=== PATIENT | male | born 1980 | race Caucasian/White ===

== ENCOUNTER 2022-02-10 02:51 | Outpatient (CLI) | payer MEDICAID | END 2022-02-10 02:52 | disposition critical access hospital (66) | LOC: EMS 02:51 | DX: R11.2 Nausea with vomiting, unspecified (principal) | CPT/HCPCS: A0425; A0427; A0999 ==

== ENCOUNTER 2022-02-10 03:09 | Emergency (ER) | payer MEDICAID, MEDICARE ==
[2022-02-10 03:27] VITALS: BP 127/77
--- NOTE | 2022-02-10 04:55 | ED Physician Documentation ---
History of Present Illness - Stated complaint Stated Complaint: VOMITING - Chief complaint Chief Complaint: General - History obtained from History obtained from: Patient - History of Present Illness Timing: Prior to arrival Pain level now: 0 Improved by: no ameliorating factors Worsened by: no exacerbating factors - Additonal information Additional information: BIBA from [facility]. 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 Symptoms have been adequately controlled with PO meds until [facility] when he suddenly had recurrent vomiting with nausea, unable to tolerate anything PO including the medications for nausea as well as withdrawal ([facility] can only give PO meds and not IV or IM). Review of Systems Constitutional: reports: Reviewed and negative Cardiac: reports: Reviewed and negative Respiratory: reports: Reviewed and negative GI: reports: Nausea, Vomiting. denies: Abdominal Pain PD PAST MEDICAL HISTORY - Past Medical History Past Medical History: No - Allergies Allergies/Adverse Reactions: Allergies Allergy/AdvReac Type Severity Reaction Status Date / Time No Known Drug Allergies Allergy Verified 02/10/22 03:24 - Social History Does the pt drink ETOH?: Yes PD ED PE NORMAL - Vitals Vital signs reviewed: Yes - General General: Alert and oriented X 3, No acute distress, Well developed/nourished - HEENT HEENT: PERRL, EOMI, Moist mucous membranes - Cardiac Cardiac: RRR, No murmur - Respiratory Respiratory: No respiratory distress, Clear bilaterally - Abdomen Abdomen: Soft, Non tender - Neuro Neuro: Alert and oriented X 3, Normal speech Eye Opening: Spontaneous Motor: Obeys Commands Verbal: Oriented GCS Score: 15 Results - Vitals Vitals: Oxygen O2 Source Room air PD MEDICAL DECISION MAKING - ED course Complexity details: considered differential, d/w patient ED course: patient had n/v at [facility] tonight but by the time of ED arrival, this had resolved and did not recur during his ED stay. He requests d/c back to [facility]. He has some mild tremulousness and thus given 1mg lorazepam PO prior to d/c, as well as 4mg TL zofran and he tolerates these medications (no further n/v). Taken by taxi back to [facility] Departure - Departure Disposition: 01 Home, Self Care Clinical Impression: Vomiting Qualifiers: Vomiting type: unspecified Nausea presence: with nausea Qualified Code(s): R11.2 - Nausea with vomiting, unspecified Condition: Good Instructions: ED Nausea Vomiting Discharge Date/Time: 02/10/22 05:31
[2022-02-10] MEDS ORDERED: LORazepam 0.5 MG TABLET PO STA (05:15)
[2022-02-10] MEDS ORDERED: ONDANSETRON ODT 4 MG TABLET TL STA (05:15)
== END 2022-02-10 05:31 | disposition home or self-care (01) ==
LOC: ED 03:09
DX: R11.2 Nausea with vomiting, unspecified (principal)
CPT/HCPCS: 99282; A9270; Q0162